=== PATIENT | male | born 1955 | race Caucasian/White ===

== ENCOUNTER 2016-07-19 09:26 | Day surgery (SDC) | payer OTHER ==
[2016-07-18 14:41] VITALS: BMI 26.7
[2016-07-19] MEDS ORDERED: PROPOFOL 20 ML ONE ×3 (10:12)
[2016-07-19 11:23] VITALS: TEMP 97.7
[2016-07-19 12:10] VITALS: BP 116/82; PULSE 66
--- NOTE | 2016-07-20 13:50 | PATH ---
Surgical Pathology Report Patient Name: RAMAKRISHNA CLARK [facility]. Rec. #: [id number] /Age/Gender: 1955 (Age: 61) / M Account: [id number] Location: [facility]-ENDOSCOPY Taken: 07/19/2016 Received: 07/19/2016 Reported: 07/20/2016 Physicians: Juan C Barnes D.O. Specimen(s) Received A: BX ICV POLYP B: BX RT COLON POLYP Clinical History Adenoma surveillance Polyps, hemorrhoids Final Diagnosis A. ILEOCECAL VALVE, POLYP, BIOPSY: CONSISTENT WITH INFLAMMATORY/POSTINFLAMMATORY POLYP. B. COLON, RIGHT, POLYP, BIOPSY: TUBULAR ADENOMA. Electronically Signed Cruz Damon M.D. Gross Description A. Received in formalin, labeled "biopsy ileocecal valve polyp" are 4 ritchie, irregular portions of soft tissue ranging from 0.2-0.3 cm in greatest dimension. The specimens are submitted in toto in one cassette. B. Received in formalin, labeled "biopsy right colon polyp" is a ritchie, irregular portion of soft tissue measuring 0.1 cm in greatest dimension. The specimen is submitted in toto in one cassette. 07/19/201607/19/2016
== END 2016-07-19 12:13 | disposition home or self-care (01) ==
LOC: JASU-ENDO 09:26
PROVIDERS: ATTEND Internal Medicine Gastroenterology
PROC: 0DBF8ZX Excision of Right Large Intestine, Via Natural or Artificial Opening Endoscopic, Diagnostic (ICD-10-PCS; 2016-07-19)
PROC: 0D5C8ZZ Destruction of Ileocecal Valve, Via Natural or Artificial Opening Endoscopic (ICD-10-PCS; principal; 2016-07-19 10:30)
DX: Z12.11 Encounter for screening for malignant neoplasm of colon (principal); Z86.010 Personal history of colon polyps; K63.5 Polyp of colon; D12.0 Benign neoplasm of cecum
CPT/HCPCS: 88305-TC

== ENCOUNTER 2022-02-03 22:04 | Emergency (ER) | payer OTHER ==
[2022-02-03 22:17] VITALS: BP 159/61; PULSE 67; RESP 18; TEMP 97.8; BMI 31.7
[2022-02-03] MEDS ORDERED: LIDOCAINE HCL 2% (50ML VIAL) SQ ONE (23:14)
[2022-02-03] MEDS ORDERED: SULFAMETHOXAZOLE/TRIMETHOPRIM 800MG/160MG D.S. TABLET PO ONE (23:17)
[2022-02-03] MEDS ORDERED: CEPHALEXIN MONOHYDRATE 500 MG CAPSULE (UD) PO ONE (23:17)
[2022-02-03] MEDS ORDERED: LIDOCAINE HCL 2% (20ML MULTI-DOSE VIAL) ONE (23:18)
[2022-02-03] MEDS ORDERED: CEPHALEXIN MONOHYDRATE 500 MG CAPSULE (UD) ONE (23:19)
[2022-02-03] MEDS ORDERED: SULFAMETHOXAZOLE/TRIMETHOPRIM 800MG/160MG D.S. TABLET ONE (23:20)
== END 2022-02-04 00:14 | disposition home or self-care (01) ==
LOC: JER 22:04
DX: L98.8 Other specified disorders of the skin and subcutaneous tissue (principal)
CPT/HCPCS: 99283-25

== ENCOUNTER 2022-04-23 11:43 | Emergency (ER) | payer OTHER ==
[2022-04-23 11:50] VITALS: BP 144/86; PULSE 89; RESP 18; TEMP 98; BMI 28.8
== END 2022-04-23 17:17 | disposition home or self-care (01) ==
LOC: JER 11:43
DX: H10.33 Unspecified acute conjunctivitis, bilateral (principal); J06.9 Acute upper respiratory infection, unspecified
CPT/HCPCS: 0241U-QW; 71046-TC-FY; 99284-25

== ENCOUNTER 2022-06-29 21:11 | Emergency (ER) | payer MEDICARE, OTHER ==
[2022-06-29 21:19] VITALS: PULSE 58; RESP 20; TEMP 97.9; BMI 32.5
[2022-06-29] MEDS ORDERED: valACYclovir HCL 1000 MG TABLET PO ONE (23:35)
[2022-06-29] MEDS ORDERED: SULFAMETHOXAZOLE/TRIMETHOPRIM 800MG/160MG D.S. TABLET PO ONE (23:35)
[2022-06-29] MEDS ORDERED: CEPHALEXIN MONOHYDRATE 500 MG CAPSULE (UD) PO ONE (23:36)
[2022-06-29] MEDS ORDERED: valACYclovir HCL 500 MG TABLET (FP) ONE (23:39)
[2022-06-29] MEDS ORDERED: CEPHALEXIN MONOHYDRATE 500 MG CAPSULE (UD) ONE (23:39)
[2022-06-29] MEDS ORDERED: SULFAMETHOXAZOLE/TRIMETHOPRIM 800MG/160MG D.S. TABLET ONE (23:40)
[2022-06-29 23:53] VITALS: BP 158/78
== END 2022-06-29 23:53 | disposition home or self-care (01) ==
LOC: JER 21:11
DX: B02.9 Zoster without complications (principal); N64.4 Mastodynia
CPT/HCPCS: 99283-25

== ENCOUNTER 2022-07-05 07:37 | Emergency (ER) | payer MEDICARE ==
[2022-07-05 07:49] VITALS: RESP 18; BMI 32.5
[2022-07-05] MEDS ORDERED: ACETAMINOPHEN 1000 MG/100 ML BAG IVPB ONE (08:36)
[2022-07-05] MEDS ORDERED: FAMOTIDINE 20 MG/50 ML IVPB 20 MG/50 ML MG IVPB ONE ×2 (08:36→08:41)
[2022-07-05] MEDS ORDERED: ACETAMINOPHEN INJECTION 100 ML IVPB ONE (08:41)
[2022-07-05 08:43] LABS: BASO % 0.4 % (0-2.0); EOS % 2.1 % (0-4.5); HEMATOCRIT 40.8 % (35.4-49); HEMOGLOBIN 13.9 GM/dL (11.7-16.9); MCH 29.2 pg (25.7-33.7); MCHC 34.1 g/dl (32.0-35.9); MEAN CELL VOLUME 85.5 fl (80-96); MEAN PLT VOLUME 9.2 fl (7.5-11.1); MONO % 8.1 % (3.8-10.2); NEUT % 72.4 % (42.8-82.8); PLATELET COUNT 160 10^3/uL (134-434); RBC 4.77 M/mm3 (4.00-5.60); RDW 14.6 % (11.9-15.9); WHITE BLOOD COUNT 6.5 K/mm3 (4.0-10.0)
[2022-07-05 08:51] LABS: INR 1.1 (0.83-1.09); PROTHROMBIN TIME (PATIENT) 12.8 SEC (9.7-13.0)
[2022-07-05 09:10] LABS: ALBUMIN 4.1 g/dl (3.4-5.0); BLOOD UREA NITROGEN 21.9 mg/dL (7-18); CALCIUM 9.1 mg/dL (8.5-10.1); MAGNESIUM 2.3 mg/dL (1.8-2.4)
[2022-07-05 09:14] LABS: CREATININE 1.1 mg/dL (0.55-1.3)
[2022-07-05 09:15] LABS: TOT PROT 7.3 g/dl (6.4-8.2)
[2022-07-05 09:16] LABS: BILIRUBIN,TOTAL 0.5 mg/dL (0.2-1)
[2022-07-05 09:19] LABS: N-TERMINAL BNP 84.9 pg/ml (5-125)
[2022-07-05] MEDS ORDERED: SUCRALFATE 1 GM TABLET (FP) ONE (09:21)
[2022-07-05] MEDS ORDERED: SUCRALFATE 1 GM TABLET (FP) PO ONE (09:21)
[2022-07-05] MEDS: SUCRALFATE 1 GM/10 ML UNIT DOSE CUPS PO ONE ×2 (09:31→09:32)
[2022-07-05 10:09] VITALS: TEMP 98.5
[2022-07-05 12:13] VITALS: BP 128/82; PULSE 78
== END 2022-07-05 12:14 | disposition home or self-care (01) ==
LOC: JER 07:37 → UNDOADMOB 08:57 → JERBED 08:57 → JER 12:14
PROC: 3E0333Z Introduction of Anti-inflammatory into Peripheral Vein, Percutaneous Approach (ICD-10-PCS; principal; 2022-07-05)
PROC: 3E033GC Introduction of Other Therapeutic Substance into Peripheral Vein, Percutaneous Approach (ICD-10-PCS; 2022-07-05)
DX: B02.9 Zoster without complications (principal); R07.89 Other chest pain
CPT/HCPCS: 36415; 71045-TC-FY; 80053; 83735; 83880; 84484; 85025; 85610; 85730; 86850; 86900; 86901; 93005; 93010; 96374; 96375; 99285-25; C9803-CS; U0003; U0005

== ENCOUNTER 2023-04-29 22:22 | Emergency (ER) | payer MEDICARE ==
[2023-04-29 22:32] VITALS: BP 144/87; PULSE 69; RESP 18; TEMP 97.7; BMI 28.0
[2023-04-29] MEDS ORDERED: ACETAMINOPHEN 500 MG TABLET (FP) PO ONE (22:59)
[2023-04-29] MEDS ORDERED: ACETAMINOPHEN 325 MG TABLET (FP) ONE (23:05)
[2023-04-29] MEDS ORDERED: DIPHTH,PERTUSS(ACELL),TET 0.5 ML DISP.SYRIN IM ONE ×2 (23:05→23:55)
[2023-04-30] MEDS ORDERED: BACITRACIN 0.9 GM PACKET ONE (00:02)
== END 2023-04-30 00:20 | disposition home or self-care (01) ==
LOC: JER 22:22
PROC: 0HQ0XZZ Repair Scalp Skin, External Approach (ICD-10-PCS; principal; 2023-04-29)
PROC: 3E0234Z Introduction of Serum, Toxoid and Vaccine into Muscle, Percutaneous Approach (ICD-10-PCS; 2023-04-29)
DX: S01.01XA Laceration without foreign body of scalp, initial encounter (principal); W22.8XXA Striking against or struck by other objects, initial encounter; Y99.0 Civilian activity done for income or pay
CPT/HCPCS: 12001-25; 70450-TC; 90471; 90715; 99284-25

== ENCOUNTER 2024-06-10 18:57 | Emergency (ER) | payer MEDICARE ==
[2024-06-10 19:22] VITALS: BP 144/79; PULSE 62; RESP 18; TEMP 97.8; BMI 28.0
== END 2024-06-10 22:07 | disposition home or self-care (01) ==
LOC: JERFT 18:57
DX: K13.3 Hairy leukoplakia (principal)
CPT/HCPCS: 99283-25